=== PATIENT | male | born 1960 | race American Indian/Alaskan Native ===

== ENCOUNTER 2016-09-28 10:04 | Inpatient (IN) | payer SELFPAY ==
[2016-09-28 10:48] LABS: Basophils % (Auto) 0.3 % (0.0-1.8); Eosinophils % (Auto) 0.1 % (0.0-4.3); Hematocrit 37.8 % (35.5-45.6); Hemoglobin 12.6 gm/dl (11.8-15.2); Mean Corpuscular HGB Conc 34 % (32-34); Mean Corpuscular Hemoglobin 33 pg (28-32); Mean Corpuscular Volume 100 fl (84-94); Platelet Count 169 K/mm3 (140-440); Red Cell Distribution Width 14.5 % (13.2-15.2); White Blood Count 12.4 K/mm3 (4.5-11.0)
[2016-09-28 10:58] LABS: INR 0.97 (0.87-1.13)
[2016-09-28 10:59] LABS: Partial Thromboplastin Time 26.6 Sec. (24.2-36.6)
[2016-09-28 11:13] LABS: Anion Gap 24 mmol/L; BUN/Creatinine Ratio 11.42; Blood Urea Nitrogen 8 mg/dL (9-20); Calcium 9.5 mg/dL (8.4-10.2); Carbon Dioxide 21 mmol/L (22-30); Chloride 85.5 mmol/L (98-107); Glucose 90 mg/dL (75-100); Potassium 3.5 mmol/L (3.6-5.0); Sodium 127 mmol/L (137-145)
--- NOTE | 2016-09-28 11:15 | XRay Report ---
AP CHEST: HISTORY: Hypertension Patchy infiltrate or atelectasis has developed at the left lung base since 09/09/15. The remainder of the lungs are clear. No pleural effusion or pneumothorax. Normal heart and mediastinal structures. Chronic granulomatous findings are noted. IMPRESSION: Left lower lobe opacity concerning for infiltrate or atelectasis. Correlate for pneumonia.
[2016-09-28 11:19] LABS: Albumin 4.3 g/dL (3.9-5); Albumin/Globulin Ratio 1.5 %; Bilirubin,Direct 0.3 mg/dL (0-0.2); Bilirubin,Indirect 0.9 mg/dL; Bilirubin,Total 1.2 mg/dL (0.1-1.2); Magnesium 1.5 mg/dL (1.7-2.3); Total Protein 7.2 g/dL (6.3-8.2)
[2016-09-28 11:38] LABS: Urine Drugs of Abuse Note Disclamer
[2016-09-28 11:46] LABS: Bilirubin,Urine NEG (Negative); Blood,Urine MOD (Negative); Ketones,Urine 20 mg/dL (Negative); Leukocyte Esterase,Urine NEG (Negative); Nitrite,Urine NEG (Negative)
[2016-09-28] MEDS ORDERED: NACL 0.9% 1000 ML 1,000 ML IV ONE ×2 (12:04→12:09)
[2016-09-28] MEDS ORDERED: MAGNESIUM SULFATE 2GM/50ML 2 GM/50 ML BAG IV ONE (12:06)
[2016-09-28] MEDS ORDERED: K-DUR PO ONE (12:06)
[2016-09-28] MEDS ORDERED: LEVAQUIN 750MG/150ML 750 MG/150 ML BAG IV ONE (12:09)
[2016-09-28] MEDS ORDERED: ATIVAN PO ONE (12:54)
--- NOTE | 2016-09-28 12:54 | Admit Criteria Form ---
Admission Criteria Documentation: PNEUMONIA, COMMUNITY ACQUIRED Clinical Indications for Admission to Inpatient Care ( Place 'X' for any and all applicable criteria): Admission is indicated for ANY ONE of the following (1)(2)(3): [ ]I. Hypoxemia indicated by ANY ONE of the following: [ ]a) Oxygen saturation less than 90% while breathing room air [ ]b) PO2 less than 60 mm Hg (8.0 kPa) while breathing room air [ ]c) Chronic lung disease with significant deterioration from baseline oxygenation [X]II. Appropriate diagnostic testing and treatment unavailable in outpatient or recovery facility (eg,testing or infection control measures unavailable(10) [ ]III. Moderate-risk or high-risk category patients (Pneumonia Severity Index (PSI) class IV or V, or CURB-65 score of 3 or greater). [ ]IV. Outpatient treatment failure as indicated by ANY ONE of the following(9) : [ ]a) Failure to respond to antibiotic (eg, resistant organism) [ ]b) Clinically significant adverse effects from medication (eg, vomiting) [ ]c) Complications of pneumonia (eg, empyema, bacteremia) [ ]d) Significant worsening of comorbid cond necessitating inpatient care (eg, chronic heart failure) [ ]V. Intermediate-risk category patients (eg, PSI class III or CURB-65 score 2) who do not improve with initial therapy and observation. [ ]. Immunocompromised patients (eg, AIDS, chronic steroid use) at moderate or high risk based on clinical evaluation. [ ]VII. Complicated pleural effusions (eg, exudative, loculated) [ ]VIII.Hemodynamic instability [ ] IX. Altered mental status that is severe or persistent. [ ]X. Dehydration that is severe or persistent. []XI. Bacteremia [ ]XII. Respiratory finding (eg. tachypnea) that do not respond to outpatient or observation care treatment Extended stay beyond goal length of stay may be needed for (20) [ ]a) Unclear diagnosis [ ]b) Pleural disease [ ]c) Severe pneumonia or treatment failure (25 [ ]d) Respiratory failure (anticipate invasive or noninvasive ventilatory support) [ ]e) Abnormal serum electrolytes (serum Na concentration less than 135 mEq/L (mmol/L) (32)(33) [ ]f) Clinically significant comorbid illness (eg, heart failure, atrial fibrillation with rapid heart rate, alcohol withdrawal, renal insufficiency)(34)(35) [ ]g) Comorbid acute exacerbation of COPD(36) [ ]h) Concomitant diagnosis of malignancy that may be associated with malnutrition, immunologic impairment, or bronchial obstruction. [ ]i) Concomitant altered mental status [ ]j) Culture-identified Gram-negative or antibiotic-resistant organism (eg, Pseudomonas, methicillin-resistant Staphylococcus aureus)(30) [ ]k) Healthcare-associated pneumonia The original [employer] content created by [employer] has been revised. The portions of the content which have been revised are identified through the use of italic text or in bold, and [facility] has neither reviewed nor approved the modified material. All other unmodified content is copyright [employer]. Please see references footnoted in the original [facility] edition 2016 Admission Criteria Met: Yes
--- NOTE | 2016-09-28 15:43 | History and Physical Report ---
History of Present Illness Date of examination: 09/28/16 Date of admission: 09/28/16 Chief complaint: Chest pain since am History of present illness: The patient has had substernal chest pain which appears to radiate up towards his jaw. He says he has a history of reflux and thinks that's what it is. He has previously been on proton inhibitors but states he is not taking them now. It looks like he received a prescription last July when he eighth. He states that he does take his habits. He states he has a history of PCI I believe it was in 2002. He was seen in emergency department about a year ago he states but did not have any stress testing or years. He denies nausea vomiting diaphoresis or dyspnea. He does state he has had a persistent cough for several days. He describes the pain is nonpleuritic. Does continue to smoke. He's had no hemoptysis, recent travel leg swelling or calf pain. He denies fever or chills. The patient does admit to being a heavy drinker. He even tells the nurse that he may need some Ativan to prevent alcohol withdrawal. Past History Past Medical History: CAD, hypertension, hyperlipidemia Medications and Allergies Allergies Allergy/AdvReac Type Severity Reaction Status Date / Time lisinopril Allergy Mild Shortness Verified 09/11/15 13:12 of Breath Home Medications Medication Instructions Recorded Confirmed Last Taken Type Aspirin [Adult Low Dose Aspirin EC] 81 mg PO QDAY 09/28/16 09/28/16 Unknown History AtorvaSTATin [Lipitor] 80 mg PO QHS 09/28/16 09/28/16 Unknown History Carvedilol [Coreg] 12.5 mg PO BID 09/28/16 09/28/16 Unknown History Clopidogrel Bisulfate [Plavix] 75 mg PO QDAY 09/28/16 09/28/16 Unknown History FLUoxetine [PROzac] 20 mg PO QDAY 09/28/16 09/28/16 Unknown History Famotidine [Pepcid] 20 mg PO BID #60 tablet 09/29/16 Unknown Rx Levofloxacin [Levaquin TAB] 500 mg PO QDAY #5 tablet 09/29/16 Unknown Rx Active Meds: Active Medications Sodium Chloride (Nacl 0.9% 1000 Ml) 1,000 mls @ 125 mls/hr IV ONCE ONE Stop: 09/28/16 20:08 Last Admin: 09/28/16 13:56 Dose: 125 mls/hr Exam - Constitutional Vitals: Temp Pulse Resp BP Pulse Ox 98.6 F 91 H 20 151/99 97 09/28/16 10:22 09/28/16 13:31 09/28/16 13:43 09/28/16 13:31 09/28/16 13:31 Results - Labs CBC & Chem 7: 09/29/16 04:53 09/29/16 04:53 Labs: Abnormal lab results 09/28/16 09/28/16 09/28/16 Range/Units 10:30 10:30 10:34 WBC 12.4 H (4.5-11.0) K/mm3 MCV 100 H (84-94) fl MCH 33 H (28-32) pg Lymph % (Auto) 3.9 L (13.4-35.0) % Lymph # 0.5 L (1.2-5.4) K/mm3 Seg Neutrophils % 89.4 H (40.0-70.0) % Seg Neutrophils # 11.1 H (1.8-7.7) K/mm3 Sodium 127 L (137-145) mmol/L Potassium 3.5 L (3.6-5.0) mmol/L Chloride 85.5 L (98-107) mmol/L Carbon Dioxide 21 L (22-30) mmol/L BUN 8 L (9-20) mg/dL Creatinine 0.7 L (0.8-1.5) mg/dL Magnesium 1.5 L (1.7-2.3) mg/dL Direct Bilirubin 0.3 H (0-0.2) mg/dL AST 46 H (5-40) units/L Assessment and Plan - Patient Problems (1) Chest pain in adult Current Visit: Yes Status: Acute (2) HTN (hypertension) Current Visit: Yes Status: Chronic Qualifiers: Hypertension type: essential hypertension Qualified Code(s): I10 - Essential (primary) hypertension Plan to address problem: Cont Coreg (3) HLD (hyperlipidemia) Current Visit: Yes Status: Chronic Qualifiers: Hyperlipidemia type: mixed hyperlipidemia Qualified Code(s): E78.2 - Mixed hyperlipidemia Plan to address problem: on statins (4) CAD (coronary artery disease) Current Visit: Yes Status: Acute Qualifiers: Coronary Disease-Associated Artery/Lesion type: C [place] vs. transplanted heart: N Associated angina: A (5) CAD (coronary artery disease) Current Visit: Yes Status: Chronic Qualifiers: Coronary Disease-Associated Artery/Lesion type: [place] artery [place] vs. transplanted heart: N Associated angina: with stable angina Plan to address problem: On Plavix 75 mg po qday (6) Hyponatremia Current Visit: Yes Status: Acute Plan to address problem: 3 percent sodium Chloride to be given (7) DVT prophylaxis Current Visit: Yes Status: Acute
[2016-09-28] MEDS ORDERED: PERCOCET 5/325 PO PRN (15:46)
[2016-09-28] MEDS ORDERED: SODIUM CHLORIDE FLUSH SYRINGE 10 ML IV PRN (15:46)
[2016-09-28] MEDS ORDERED: TYLENOL PO PRN (15:46)
[2016-09-28] MEDS ORDERED: MILK OF MAGNESIA PO PRN (15:46)
[2016-09-28] MEDS ORDERED: DULCOLAX PR PRN (15:46)
[2016-09-28] MEDS ORDERED: ZOFRAN IV PRN (15:46)
[2016-09-28] MEDS ORDERED: DILAUDID IV PRN (15:46)
[2016-09-28] MEDS ORDERED: D5NS 1,000 ML IV SCH (16:00)
[2016-09-28 16:39] LABS: Creatine Kinase 94 units/L (55-170)
[2016-09-28 16:51] LABS: Creatine Kinase MB < 1.0 ng/mL (0.0-4.0)
--- NOTE | 2016-09-28 17:00 | Emergency Department Report ---
ED General Adult HPI - General Chief complaint: Chest Pain Stated complaint: CHEST PAIN Time Seen by Provider: 09/28/16 10:30 Source: patient, EMS Mode of arrival: Stretcher Limitations: No Limitations - History of Present Illness Initial comments: The patient has had substernal chest pain which appears to radiate up towards his throat. He says he has a history of reflux and thinks that's what it is. He has previously been on proton inhibitors but states he is not taking them now. It looks like he received a prescription last July when he eighth. He states that he does take his habits. He states he has a history of PCI I believe it was in 2002. He was seen in emergency department about a year ago he states but did not have any stress testing or years. He denies nausea vomiting diaphoresis or dyspnea. He does state he has had a persistent cough for several days. He describes the pain is nonpleuritic. Does continue to smoke. He's had no hemoptysis, recent travel leg swelling or calf pain. He denies fever or chills. The patient does admit to being a heavy drinker. He even tells the nurse that he may need some Ativan to prevent alcohol withdrawal. -: Gradual, days(s) Location: chest Radiation: other (throat and states he feels like reflux throat ) Severity scale (0 -10): 0 Quality: burning Consistency: now resolved Improves with: none Worsens with: none Associated Symptoms: cough Treatments Prior to Arrival: none - Related Data Home Medications Medication Instructions Recorded Confirmed Last Taken Aspirin [Adult Low Dose Aspirin EC] 81 mg PO QDAY 09/28/16 09/28/16 Unknown AtorvaSTATin [Lipitor] 80 mg PO QHS 09/28/16 09/28/16 Unknown Carvedilol [Coreg] 12.5 mg PO BID 09/28/16 09/28/16 Unknown Clopidogrel Bisulfate [Plavix] 75 mg PO QDAY 09/28/16 09/28/16 Unknown FLUoxetine [PROzac] 20 mg PO QDAY 09/28/16 09/28/16 Unknown Allergies Allergy/AdvReac Type Severity Reaction Status Date / Time lisinopril Allergy Mild Shortness Verified 09/11/15 13:12 of Breath ED Review of Systems ROS: Stated complaint: CHEST PAIN Other details as noted in HPI Constitutional: denies: chills, fever Eyes: denies: eye pain, eye discharge, vision change ENT: denies: ear pain, throat pain Respiratory: cough. denies: shortness of breath, wheezing Cardiovascular: chest pain. denies: palpitations Endocrine: no symptoms reported Gastrointestinal: denies: abdominal pain, nausea, diarrhea Genitourinary: denies: urgency, dysuria Musculoskeletal: denies: back pain, joint swelling, arthralgia Skin: denies: rash, lesions Neurological: denies: headache, weakness, paresthesias Psychiatric: denies: anxiety, depression Hematological/Lymphatic: denies: easy bleeding, easy bruising ED Past Medical Hx - Past Medical History Hx Hypertension: Yes Hx Heart Attack/AMI: Yes Hx Congestive Heart Failure: No Hx Diabetes: No Hx GERD: Yes Hx Asthma: No Hx COPD: Yes Additional medical history: acid reflux - Surgical History Hx Coronary Stent: Yes (2 stents 2012) - Social History Smoking Status: Current Every Day Smoker Substance Use Type: Alcohol - Medications Home Medications: Home Medications Medication Instructions Recorded Confirmed Last Taken Type Aspirin [Adult Low Dose Aspirin EC] 81 mg PO QDAY 09/28/16 09/28/16 Unknown History AtorvaSTATin [Lipitor] 80 mg PO QHS 09/28/16 09/28/16 Unknown History Carvedilol [Coreg] 12.5 mg PO BID 09/28/16 09/28/16 Unknown History Clopidogrel Bisulfate [Plavix] 75 mg PO QDAY 09/28/16 09/28/16 Unknown History FLUoxetine [PROzac] 20 mg PO QDAY 09/28/16 09/28/16 Unknown History ED Physical Exam - General Limitations: No Limitations General appearance: alert, in no apparent distress - Head Head exam: Present: atraumatic, normocephalic - Eye Eye exam: Present: normal appearance, PERRL, EOMI. Absent: scleral icterus - ENT ENT exam: Present: mucous membranes moist - Neck Neck exam: Present: normal inspection - Respiratory Respiratory exam: Present: normal lung sounds bilaterally. Absent: respiratory distress - Cardiovascular Cardiovascular Exam: Present: regular rate, normal rhythm. Absent: systolic murmur, diastolic murmur, rubs, gallop - GI/Abdominal GI/Abdominal exam: Present: soft, normal bowel sounds. Absent: distended, tenderness, guarding, rebound, rigid - Rectal Rectal exam: Present: deferred - Extremities Exam Extremities exam: Present: normal inspection - Back Exam Back exam: Present: normal inspection - Neurological Exam Neurological exam: Present: alert, oriented X3, CN II-XII intact. Absent: motor sensory deficit - Psychiatric Psychiatric exam: Present: normal affect, normal mood - Skin Skin exam: Present: warm, dry, intact, normal color. Absent: rash ED Course Vital Signs 09/28/16 09/28/16 09/28/16 10:13 10:21 10:22 Temperature 98.6 F Pulse Rate 160 H 91 H 93 H Respiratory 22 20 Rate Blood Pressure 143/99 143/99 O2 Sat by Pulse 98 100 Oximetry 09/28/16 09/28/16 09/28/16 10:31 10:41 10:51 Temperature Pulse Rate 108 H 89 99 H Respiratory 23 20 21 Rate Blood Pressure 143/99 143/99 143/99 O2 Sat by Pulse 96 96 97 Oximetry 09/28/16 09/28/16 09/28/16 11:01 11:11 11:21 Temperature Pulse Rate 94 H 90 Respiratory 17 20 Rate Blood Pressure 160/97 160/97 160/97 O2 Sat by Pulse 97 98 97 Oximetry 09/28/16 09/28/16 09/28/16 12:35 12:41 12:51 Temperature Pulse Rate 90 85 95 H Respiratory 28 H 15 18 Rate Blood Pressure 151/99 151/99 151/99 O2 Sat by Pulse 99 98 98 Oximetry 09/28/16 09/28/16 09/28/16 13:00 13:11 13:21 Temperature Pulse Rate 91 H 88 88 Respiratory 24 16 14 Rate Blood Pressure 151/99 160/97 151/99 O2 Sat by Pulse 99 98 99 Oximetry 09/28/16 09/28/16 09/28/16 13:31 13:41 13:43 Temperature Pulse Rate 91 H 90 Respiratory 18 21 20 Rate Blood Pressure 151/99 151/99 O2 Sat by Pulse 97 98 Oximetry 09/28/16 09/28/16 09/28/16 13:51 14:00 14:11 Temperature Pulse Rate 87 86 86 Respiratory 20 17 21 Rate Blood Pressure 151/99 142/94 142/94 O2 Sat by Pulse 99 99 98 Oximetry 09/28/16 09/28/16 09/28/16 14:21 14:30 14:41 Temperature Pulse Rate 87 92 H 90 Respiratory 25 H 18 19 Rate Blood Pressure 142/94 151/99 142/94 O2 Sat by Pulse 98 99 99 Oximetry 09/28/16 09/28/16 09/28/16 14:51 15:00 15:35 Temperature Pulse Rate 95 H 110 H 101 H Respiratory 18 14 Rate Blood Pressure 142/94 142/94 144/91 O2 Sat by Pulse 98 98 98 Oximetry 09/28/16 09/28/16 09/28/16 15:41 15:51 16:01 Temperature Pulse Rate 88 86 89 Respiratory 21 17 24 Rate Blood Pressure 144/91 144/91 144/92 O2 Sat by Pulse 97 100 99 Oximetry 09/28/16 09/28/16 16:11 16:21 Temperature Pulse Rate 85 86 Respiratory 14 15 Rate Blood Pressure 144/92 144/92 O2 Sat by Pulse 98 97 Oximetry - Reevaluation(s) Reevaluation #1: Patient was given 1 dose of Ativan. He remained stable in the emergency department. His case was discussed with Dr. Barry who has admitted him to the hospitalist service. He was additionally given repletion of his electrolyte deficiencies. He was admitted in stable condition. 09/28/16 17:51 ED Medical Decision Making - Lab Data Result diagrams: 09/28/16 10:30 09/28/16 10:30 Laboratory Results - last 24 hr 09/28/16 09/28/16 09/28/16 10:30 10:30 10:34 WBC 12.4 H RBC 3.80 Hgb 12.6 Hct 37.8 MCV 100 H MCH 33 H MCHC 34 RDW 14.5 Plt Count 169 Lymph % (Auto) 3.9 L [place] % (Auto) 6.3 Eos % (Auto) 0.1 Baso % (Auto) 0.3 Lymph # 0.5 L [place] # 0.8 Eos # 0.0 Baso # 0.0 Seg Neutrophils % 89.4 H Seg Neutrophils # 11.1 H PT 12.8 INR 0.97 APTT 26.6 Sodium 127 L Potassium 3.5 L Chloride 85.5 L Carbon Dioxide 21 L Anion Gap 24 BUN 8 L Creatinine 0.7 L Estimated GFR > 60 BUN/Creatinine Ratio 11.42 Glucose 90 Calcium 9.5 Magnesium Total Bilirubin Direct Bilirubin Indirect Bilirubin AST ALT Alkaline Phosphatase Troponin T < 0.010 Total Protein Albumin Albumin/Globulin Ratio Lipase Urine Color Urine Turbidity Urine pH Ur Specific [place] Urine Protein Urine Glucose (UA) Urine Ketones Urine Blood Urine Nitrite Urine Bilirubin Urine Urobilinogen Ur Leukocyte Esterase Urine WBC (Auto) Urine RBC (Auto) U Epithel Cells (Auto) Urine Opiates Screen Urine Methadone Screen Ur Barbiturates Screen Ur Phencyclidine Scrn Ur Amphetamines Screen U Benzodiazepines Scrn Urine Cocaine Screen U Marijuana (THC) Screen Drugs of Abuse Note Plasma/Serum Alcohol 09/28/16 09/28/16 09/28/16 10:34 10:34 11:34 WBC RBC Hgb Hct MCV MCH MCHC RDW Plt Count Lymph % (Auto) [place] % (Auto) Eos % (Auto) Baso % (Auto) Lymph # [place] # Eos # Baso # Seg Neutrophils % Seg Neutrophils # PT INR APTT Sodium Potassium Chloride Carbon Dioxide Anion Gap BUN Creatinine Estimated GFR BUN/Creatinine Ratio Glucose Calcium Magnesium 1.5 L Total Bilirubin 1.2 Direct Bilirubin 0.3 H Indirect Bilirubin 0.9 AST 46 H ALT 29 Alkaline Phosphatase 109 Troponin T Total Protein 7.2 Albumin 4.3 Albumin/Globulin Ratio 1.5 Lipase 17 Urine Color Urine Turbidity Urine pH Ur Specific [place] Urine Protein Urine Glucose (UA) Urine Ketones Urine Blood Urine Nitrite Urine Bilirubin Urine Urobilinogen Ur Leukocyte Esterase Urine WBC (Auto) Urine RBC (Auto) U Epithel Cells (Auto) Urine Opiates Screen Presumptive negative Urine Methadone Screen Presumptive negative Ur Barbiturates Screen Presumptive negative Ur Phencyclidine Scrn Presumptive negative Ur Amphetamines Screen Presumptive negative U Benzodiazepines Scrn Presumptive negative Urine Cocaine Screen Presumptive negative U Marijuana (THC) Screen Presumptive negative Drugs of Abuse Note Disclamer Plasma/Serum Alcohol 0.02 09/28/16 11:34 WBC RBC Hgb Hct MCV MCH MCHC RDW Plt Count Lymph % (Auto) [place] % (Auto) Eos % (Auto) Baso % (Auto) Lymph # [place] # Eos # Baso # Seg Neutrophils % Seg Neutrophils # PT INR APTT Sodium Potassium Chloride Carbon Dioxide Anion Gap BUN Creatinine Estimated GFR BUN/Creatinine Ratio Glucose Calcium Magnesium Total Bilirubin Direct Bilirubin Indirect Bilirubin AST ALT Alkaline Phosphatase Troponin T Total Protein Albumin Albumin/Globulin Ratio Lipase Urine Color Yellow Urine Turbidity Clear Urine pH 7.0 Ur Specific [place] 1.010 Urine Protein 30 mg/dl Urine Glucose (UA) Neg Urine Ketones 20 Urine Blood Mod Urine Nitrite Neg Urine Bilirubin Neg Urine Urobilinogen 2.0 Ur Leukocyte Esterase Neg Urine WBC (Auto) 1.0 Urine RBC (Auto) 8.0 U Epithel Cells (Auto) < 1.0 Urine Opiates Screen Urine Methadone Screen Ur Barbiturates Screen Ur Phencyclidine Scrn Ur Amphetamines Screen U Benzodiazepines Scrn Urine Cocaine Screen U Marijuana (THC) Screen Drugs of Abuse Note Plasma/Serum Alcohol - EKG Data -: EKG Interpreted by Me EKG shows normal: sinus rhythm Rate: normal - EKG Data Interpretation: other (inferior Q's consistent with old inferior wall zone. Nonspecific ST-T wave changes no ischemic changes left axis deviation. RSR pattern in V1 and V2) - Radiology Data Radiology results: report reviewed interpreted by me: Is a left lower lobe infiltrate that was not present on previous x-ray. Critical care attestation.: If time is entered above; I have spent that time in minutes in the direct care of this critically ill patient, excluding procedure time. ED Disposition Clinical Impression: Hyponatremia, Hypomagnesemia, Chronic liver disease Pneumonia Qualifiers: Pneumonia type: due to unspecified organism Laterality: left Lung location: lower lobe of lung Qualified Code(s): J18.9 - Pneumonia, unspecified organism Alcohol dependency Qualifiers: Substance use status: uncomplicated Qualified Code(s): F10.20 - Alcohol dependence, uncomplicated Disposition: OP ADMITTED IP TO THIS HOSP Is pt being admited?: Yes Does the pt Need Aspirin: Yes Condition: Stable Instructions: Bacterial Pneumonia (ED) Time of Disposition: 17:55
[2016-09-28] MEDS ORDERED: PLAVIX ONE (18:01)
[2016-09-28] MEDS ORDERED: PROzac ONE (18:01)
[2016-09-28] MEDS: PLAVIX PO SCH (18:06)
[2016-09-28] MEDS: PROzac PO SCH (18:07)
[2016-09-28] MEDS: HALFPRIN EC PO SCH ×2 (18:07→18:42)
[2016-09-28] MEDS ORDERED: ATIVAN ONE (18:45)
[2016-09-28 19:59] LABS: Creatine Kinase 88 units/L (55-170)
[2016-09-28 20:06] LABS: Creatine Kinase MB < 1.0 ng/mL (0.0-4.0)
[2016-09-28] MEDS: COREG PO SCH (21:32)
[2016-09-28 22:28] LABS: Creatine Kinase 80 units/L (55-170)
[2016-09-28 22:31] LABS: Creatine Kinase MB < 1.0 ng/mL (0.0-4.0)
[2016-09-29 06:48] LABS: Alanine Aminotransferase 21 units/L (7-56); Albumin 3.8 g/dL (3.9-5); Albumin/Globulin Ratio 1.4 %; Alkaline Phosphatase 88 units/L (35-129); Anion Gap 19 mmol/L; BUN/Creatinine Ratio 14.44; Basophils % (Auto) 0.5 % (0.0-1.8); Bilirubin,Total 0.8 mg/dL (0.1-1.2); Blood Urea Nitrogen 13 mg/dL (9-20); Calcium 9.1 mg/dL (8.4-10.2); Carbon Dioxide 22 mmol/L (22-30); Chloride 95.8 mmol/L (98-107); Eosinophils % (Auto) 0.8 % (0.0-4.3); Glucose 112 mg/dL (75-100); Hematocrit 37.1 % (35.5-45.6); Hemoglobin 12.4 gm/dl (11.8-15.2); Mean Corpuscular HGB Conc 33 % (32-34); Mean Corpuscular Hemoglobin 34 pg (28-32); Mean Corpuscular Volume 101 fl (84-94); Platelet Count 161 K/mm3 (140-440); Potassium 3.6 mmol/L (3.6-5.0); Red Blood Count 3.68 M/mm3 (3.65-5.03); Sodium 133 mmol/L (137-145); Total Protein 6.5 g/dL (6.3-8.2); White Blood Count 9.5 K/mm3 (4.5-11.0)
[2016-09-29 08:20] VITALS: BP 135/85
[2016-09-29] MEDS ORDERED: LEXISCAN IV ONE (09:43)
[2016-09-29] MEDS ORDERED: LOVENOX SUB-Q SCH (10:00)
[2016-09-29] MEDS: HALFPRIN EC PO SCH (11:53)
[2016-09-29] MEDS: COREG PO SCH (11:53)
[2016-09-29] MEDS: PROzac PO SCH (11:53)
[2016-09-29] MEDS: PLAVIX PO SCH (11:53)
--- NOTE | 2016-09-29 13:52 | Discharge Summary ---
Providers - Providers Date of Admission: 09/28/16 15:46 Date of discharge: 09/29/16 Attending physician: CONCEPCION TIAN Primary care physician: JAY TORREZ MD Hospitalization Condition: Fair Hospital course: Patient is 56 yo with history of coronary artery disease, GERD. He presented with chest pain. His initial Troponin done in ED, was normal. He was given Aspirin and admitted to Telemetry to rule out acute coronary syndrome. Stress test was done following day and was normal. Chest X ray showed left lower lobe pneumonia. Chest pain due to pneumonia. He was subsequently discharged home on Famotidine and Levaquin. Disposition: DISCHARGED TO HOME OR SELFCARE - Discharge Diagnoses (1) CAD (coronary artery disease) Status: Chronic Qualifiers: Coronary Disease-Associated Artery/Lesion type: C [place] vs. transplanted heart: N Associated angina: A (2) Chest pain in adult Status: Acute Comment: due to pneumonia (3) Hyponatremia Status: Acute (4) HLD (hyperlipidemia) Status: Chronic Qualifiers: Hyperlipidemia type: mixed hyperlipidemia Qualified Code(s): E78.2 - Mixed hyperlipidemia (5) HTN (hypertension) Status: Chronic Qualifiers: Hypertension type: essential hypertension Qualified Code(s): I10 - Essential (primary) hypertension (6) Pneumonia Status: Acute Qualifiers: Pneumonia type: P Aspiration pneumonia type: A Laterality: left Lung location: lower lobe of lung Core Measure Documentation - Palliative Care Palliative Care/ Comfort Measures: Not Applicable - Core Measures Any of the following diagnoses?: none Exam - Constitutional Vitals: Temp Pulse Resp BP Pulse Ox 98.3 F 77 18 135/85 99 09/29/16 04:25 09/29/16 12:19 09/29/16 08:19 09/29/16 11:53 09/29/16 08:19 Plan Activity: advance as tolerated Diet: low fat, low cholesterol, low salt Additional Instructions: 1.Follow up with PCP or [facility] in 1 week. 2.Follow up with Partner Marketing Manager in 1 week Follow up with: PRIMARY MD SHAN [Primary Care Provider] - 3-5 Days Prescriptions: Famotidine [Pepcid] 20 mg PO BID #60 tablet
[2016-09-29] MEDS ORDERED: LEVAQUIN PO SCH (14:00)
--- NOTE | 2016-09-29 14:20 | Treadmill Report ---
THALLIUM STRESS TEST LEFT VENTRICLE: Left ventricular chamber size is within normal. Perfusion study demonstrates fairly homogeneous uptake of the tracer in all segments, no significant defects identified. Mild diaphragmatic attenuation artifact is noted. Gated analysis demonstrates normal left ventricular systolic function, ejection fraction 65%. CONCLUSION: Normal myocardial perfusion study. JOB# [id number] CA/NTS
== END 2016-09-29 15:20 | disposition home or self-care (01) | DRG 302 ==
LOC: ED 10:04 → 4A 15:46
PROVIDERS: ADMIT Internal Medicine; ATTEND Internal Medicine
DX: I25.10 Atherosclerotic heart disease of native coronary artery without angina pectoris (principal); J18.9 Pneumonia, unspecified organism; E87.1 Hypo-osmolality and hyponatremia; I10 Essential (primary) hypertension; K21.9 Gastro-esophageal reflux disease without esophagitis; J44.9 Chronic obstructive pulmonary disease, unspecified; E78.2 Mixed hyperlipidemia; F17.210 Nicotine dependence, cigarettes, uncomplicated; Z98.61 Coronary angioplasty status; Z88.8 Allergy status to other drugs, medicaments and biological substances
CPT/HCPCS: 36415; 71010; 78452; 80048; 80053; 80074; 80307; 80320; 81001; 82140; 82550; 82553; 83036; 83690; 83735; 84484; 85025; 85610; 85730; 87040; 93005; 93010; 93017; 96361; 96365; 96375; A9270-GY; A9502; G0480; J1650; J1956; J2785; J3475; J7030; J7042

== ENCOUNTER 2016-10-12 22:42 | Emergency (ER) | payer SELFPAY ==
--- NOTE | 2016-10-12 23:26 | Emergency Department Report ---
ED General Adult HPI - General Chief complaint: Dyspnea/Respdistress Stated complaint: HYPOTENSION Time Seen by Provider: 10/12/16 23:01 Source: patient, EMS Mode of arrival: Stretcher Limitations: No Limitations - History of Present Illness Initial comments: 56-year-old male presents to the emergency department via EMS for evaluation of low blood pressure. Per report, the patient initially called EMS due to shortness of breath. Patient recently was diagnosed with pneumonia and states he completed his antibiotic 3 days ago. Patient has been drinking alcohol tonight and was attempting to walk up until to get more alcohol when he began having difficulty breathing. There was no associated chest pain. EMS notes that the patient was hypotensive during there are evaluation with a blood pressure of 77/50. Patient was given 1 L of normal saline with improvement in his blood pressure. Patient states he normally drinks 8 shots of liquor a day along with a sixpack of beer. He states he is trying to cut back on this and would like help getting into rehabilitation. There are no other complaints. -: Sudden, This evening Consistency: now resolved Improves with: rest Worsens with: none - Related Data Home Medications Medication Instructions Recorded Confirmed Last Taken Aspirin [Adult Low Dose Aspirin EC] 81 mg PO QDAY 09/28/16 09/28/16 Unknown AtorvaSTATin [Lipitor] 80 mg PO QHS 09/28/16 09/28/16 Unknown Carvedilol [Coreg] 12.5 mg PO BID 09/28/16 09/28/16 Unknown Clopidogrel Bisulfate [Plavix] 75 mg PO QDAY 09/28/16 09/28/16 Unknown FLUoxetine [PROzac] 20 mg PO QDAY 09/28/16 09/28/16 Unknown Previous Rx's Medication Instructions Recorded Last Taken Type Famotidine [Pepcid] 20 mg PO BID #60 tablet 09/29/16 Unknown Rx Levofloxacin [Levaquin TAB] 500 mg PO QDAY #5 tablet 09/29/16 Unknown Rx Allergies Allergy/AdvReac Type Severity Reaction Status Date / Time lisinopril Allergy Mild Shortness Verified 09/11/15 13:12 of Breath bee venom (honey bee) Allergy Hives Verified 10/12/16 23:17 ED Review of Systems ROS: Stated complaint: HYPOTENSION Other details as noted in HPI Comment: All other systems reviewed and negative Respiratory: SOB with exertion Psychiatric: as per HPI (alcohol abuse) ED Past Medical Hx - Past Medical History Previous Medical History?: Yes Hx Hypertension: Yes Hx Heart Attack/AMI: Yes Hx Congestive Heart Failure: Yes Hx Diabetes: No Hx GERD: Yes Hx Psychiatric Treatment: Yes (depression/anxiety/ADHD) Hx Asthma: No Hx COPD: Yes Additional medical history: acid reflux - Surgical History Past Surgical History?: Yes Hx Coronary Stent: Yes - Family History Family history: no significant - Social History Smoking Status: Current Every Day Smoker Substance Use Type: Alcohol - Medications Home Medications: Home Medications Medication Instructions Recorded Confirmed Last Taken Type Aspirin [Adult Low Dose Aspirin EC] 81 mg PO QDAY 09/28/16 09/28/16 Unknown History AtorvaSTATin [Lipitor] 80 mg PO QHS 09/28/16 09/28/16 Unknown History Carvedilol [Coreg] 12.5 mg PO BID 09/28/16 09/28/16 Unknown History Clopidogrel Bisulfate [Plavix] 75 mg PO QDAY 09/28/16 09/28/16 Unknown History FLUoxetine [PROzac] 20 mg PO QDAY 09/28/16 09/28/16 Unknown History Famotidine [Pepcid] 20 mg PO BID #60 tablet 09/29/16 Unknown Rx Levofloxacin [Levaquin TAB] 500 mg PO QDAY #5 tablet 09/29/16 Unknown Rx ED Physical Exam - General Limitations: No Limitations General appearance: alert, in no apparent distress - Head Head exam: Present: atraumatic, normocephalic - Eye Eye exam: Present: normal appearance, PERRL, EOMI - ENT ENT exam: Present: normal exam, normal orophraynx, mucous membranes moist - Neck Neck exam: Present: normal inspection, full ROM. Absent: tenderness - Respiratory Respiratory exam: Present: normal lung sounds bilaterally. Absent: respiratory distress - Cardiovascular Cardiovascular Exam: Present: regular rate, normal rhythm, normal heart sounds - GI/Abdominal GI/Abdominal exam: Present: soft, normal bowel sounds. Absent: distended, tenderness - Extremities Exam Extremities exam: Present: normal inspection, full ROM. Absent: tenderness - Back Exam Back exam: Present: normal inspection, full ROM. Absent: tenderness - Neurological Exam Neurological exam: Present: alert, oriented X3. Absent: motor sensory deficit - Psychiatric Psychiatric exam: Present: normal affect, normal mood. Absent: homicidal ideation, suicidal ideation - Skin Skin exam: Present: warm, dry, intact ED Course Vital Signs 10/12/16 10/12/16 23:02 23:16 Temperature 98.5 F 98.8 F Pulse Rate 80 81 Respiratory 18 16 Rate Blood Pressure 103/69 Blood Pressure 108/65 [Left] O2 Sat by Pulse 98 100 Oximetry ED Medical Decision Making - Lab Data Result diagrams: 10/12/16 23:24 10/12/16 23:24 - EKG Data -: EKG Interpreted by Me EKG shows normal: sinus rhythm, axis, intervals, QRS complexes, ST-T waves Rate: normal - EKG Data When compared to previous EKG there are: no significant change Interpretation: unchanged when compared t (09/28/2016), other (old inferior infarct, left atrial enlargement) - Radiology Data Radiology results: image reviewed interpreted by me: Chest x-ray shows resolution of the previous LLL pneumonia. There is no acute cardiopulmonary abnormality. - Medical Decision Making Lab results reviewed. Patient's blood pressure has remained within normal limits in the emergency department. Patient has been medically cleared and evaluated by mental health. He is being referred for inpatient detox. Patient is voluntary. - Differential Diagnosis pneumonia, alcohol intoxication, dehydration Critical care attestation.: If time is entered above; I have spent that time in minutes in the direct care of this critically ill patient, excluding procedure time. ED Disposition Clinical Impression: Hypomagnesemia Alcohol dependency Qualifiers: Substance use status: with intoxication Complication of substance-induced condition: uncomplicated Qualified Code(s): F10.220 - Alcohol dependence with intoxication, uncomplicated Disposition: DC/TX PSY HOSP/PSY UNIT Is pt being admited?: No Condition: Stable Referrals: PRIMARY CARE, [Primary Care Provider] - 3-5 Days Time of Disposition: 00:48
[2016-10-12 23:32] LABS: Basophils % (Auto) 0.5 % (0.0-1.8); Eosinophils % (Auto) 0.1 % (0.0-4.3); Hematocrit 35.3 % (35.5-45.6); Hemoglobin 11.5 gm/dl (11.8-15.2); Mean Corpuscular HGB Conc 33 % (32-34); Mean Corpuscular Hemoglobin 33 pg (28-32); Mean Corpuscular Volume 102 fl (84-94); Platelet Count 245 K/mm3 (140-440); Red Blood Count 3.47 M/mm3 (3.65-5.03); Red Cell Distribution Width 15.5 % (13.2-15.2); White Blood Count 12.5 K/mm3 (4.5-11.0)
[2016-10-12 23:58] LABS: Albumin 3.6 g/dL (3.9-5); Albumin/Globulin Ratio 1.2 %; Bilirubin,Total 0.6 mg/dL (0.1-1.2); Calcium 8.4 mg/dL (8.4-10.2); Chloride 90.6 mmol/L (98-107); Total Protein 6.7 g/dL (6.3-8.2)
[2016-10-13 03:47] LABS: Urine Drugs of Abuse Note Disclamer
[2016-10-13 04:06] LABS: Bilirubin,Urine NEG (Negative); Blood,Urine LG (Negative); Ketones,Urine TR mg/dL (Negative); Leukocyte Esterase,Urine NEG (Negative); Mucus,Urine FEW /HPF; Nitrite,Urine NEG (Negative); Urobilinogen,Urine < 2.0 mg/dL (<2.0)
--- NOTE | 2016-10-13 08:31 | XRay Report ---
AP chest x-ray. Findings: Since the previous study on September 28, there has been resolution of the left lower lobe infiltrate. The heart and lungs reveal no acute findings on today's study.
--- NOTE | 2016-10-13 22:31 | Consultation ---
History of Present Illness - Reason for Consult Consult date: 10/13/17 Reason for consult: psych management - Chief Complaint Chief complaint: CC: "short of breath" Patient is a 56 year old with prior psych history of depression and etoh use. He notes that he came to the hospital with SOB, but when more details was obtained, it was learned that the patient has been drinking excessively. He had been drinking daily for the last 5 years in order to deal with a lot of stuff. The initial trigger was likely his divorce. He drinking 1 pint of whiskey and a 6 pack of beer daily- last drink was last night. He's incurred blackouts from the drinking and withdrawal symptoms- current ones include nausea , tremors, and cravings. He's had 6 DUI's from the alcohol. He hasn't been using illicit drugs concurrently within the last year. He has admitted to ongoing depression and anxiety since the divorce but not to the point where he has SI. No AH/VH. No period of euphoria or psychosis. Stressors include being homeless with poor finances and on probation. Medications and Allergies Allergies Allergy/AdvReac Type Severity Reaction Status Date / Time lisinopril Allergy Mild Shortness Verified 09/11/15 13:12 of Breath bee venom (honey bee) Allergy Hives Verified 10/12/16 23:17 Home Medications Medication Instructions Recorded Confirmed Last Taken Type Aspirin [Adult Low Dose Aspirin EC] 81 mg PO QDAY 09/28/16 10/13/16 Unknown History AtorvaSTATin [Lipitor] 80 mg PO QHS 09/28/16 10/13/16 Unknown History Carvedilol [Coreg] 12.5 mg PO BID 09/28/16 10/13/16 Unknown History Clopidogrel Bisulfate [Plavix] 75 mg PO QDAY 09/28/16 10/13/16 Unknown History FLUoxetine [PROzac] 20 mg PO QDAY 09/28/16 10/13/16 Unknown History Famotidine [Pepcid] 20 mg PO BID #60 tablet 09/29/16 10/13/16 Unknown Rx ISOSORBIDE MONOnitrate [Imdur ER] 30 mg PO DAILY 10/13/16 10/13/16 Unknown History Vitamin B-1 100 mg PO DAILY 10/13/16 10/13/16 Unknown History Past psychiatric history - Past Medical History Past Medical History: CAD, COPD, heart failure, hypertension Past Surgical History: Other (heart stents) - past Psychiatric treatment and history Psych: Depression psychiatric treatment history: inpt: none outp psych: none no suicide attempts depression since the prior treatment unknown substance has been to rehab long time ago per the patient for 90 days- please see above for details regarding etoh and illicit drug use - Social History Social history: other (homeless, no abuse history, not dating, +children, no work, education:GED, family hisotry of etoh use) Mental Status Exam - Vital signs Last Vital Signs Temp 100.0 F H 10/13/16 20:01 Pulse 79 10/13/16 20:01 Resp 18 10/13/16 20:01 BP 129/88 10/13/16 20:01 Pulse Ox 98 10/13/16 20:01 - Exam Orientation: time, place, person Affect: normal, depressed Mood: sad Thought Process: Intact Perceptions: none Speech: normal rate and pattern Concentration: focused Motor activity: lethargic Level of consciousness: alert Memory: Intact Interaction: cooperative Mini mental status exam(if necessary): 24-30 Results Result Diagrams: 10/12/16 23:24 10/12/16 23:24 Abnormal lab results 10/12/16 10/12/16 10/12/16 Range/Units 23:24 23:24 23:24 WBC 12.5 H (4.5-11.0) K/mm3 RBC 3.47 L (3.65-5.03) M/mm3 Hgb 11.5 L (11.8-15.2) gm/dl Hct 35.3 L (35.5-45.6) % MCV 102 H (84-94) fl MCH 33 H (28-32) pg RDW 15.5 H (13.2-15.2) % Lymph % (Auto) 6.9 L (13.4-35.0) % Lymph # 0.9 L (1.2-5.4) K/mm3 Seg Neutrophils % 86.4 H (40.0-70.0) % Seg Neutrophils # 10.8 H (1.8-7.7) K/mm3 Sodium 133 L (137-145) mmol/L Potassium 3.0 L (3.6-5.0) mmol/L Chloride 90.6 L (98-107) mmol/L Carbon Dioxide 21 L (22-30) mmol/L ALT 5 L (7-56) units/L Albumin 3.6 L (3.9-5) g/dL Urine WBC (Auto) (0.0-6.0) /HPF Plasma/Serum Alcohol 0.22 H (0-0.07) gm% // Range/Units 02:55 WBC (4.5-11.0) K/mm3 RBC (3.65-5.03) M/mm3 Hgb (11.8-15.2) gm/dl Hct (35.5-45.6) % MCV (84-94) fl MCH (28-32) pg RDW (13.2-15.2) % Lymph % (Auto) (13.4-35.0) % Lymph # (1.2-5.4) K/mm3 Seg Neutrophils % (40.0-70.0) % Seg Neutrophils # (1.8-7.7) K/mm3 Sodium (137-145) mmol/L Potassium (3.6-5.0) mmol/L Chloride (98-107) mmol/L Carbon Dioxide (22-30) mmol/L ALT (7-56) units/L Albumin (3.9-5) g/dL Urine WBC (Auto) 55.0 H (0.0-6.0) /HPF Plasma/Serum Alcohol (0-0.07) gm% All other labs normal. Assessment and Plan Assessment and plan: Patient is a 56 year old with prior psych history of depression and etoh use. He notes that he came to the hospital with SOB, but when more details was obtained, it was learned that the patient has been drinking excessively. Plan: etoh: use ER detox protocol (e.g. ativan detox protocol) or CIWA scale based off of intensity of etoh withdrawal symptoms depression- continue with prozac- discussed black box warning of SSRI dispo: follow up with outpatient rehab once detoxed - Psychiatric problem (1) Depression Current Visit: Yes Status: Chronic Qualifiers: Depression Type: major depressive disorder Major depression recurrence: M Active/Remission status: currently active Major depression episode severity : moderate Psychotic features: P Trimester: T
--- NOTE | 2016-10-14 09:41 | Progress Note ---
Subjective - Reason for Consult Reason for consult: psych management - Chief Complaint Chief complaint: CC: "short of breath" Patient is a 56 year old with prior psych history of depression and etoh use. Patient is tolerating his detox well. In fact he describes to withdrawal symptoms at this time. He is alert oriented times 3. He denies any SI/HI/AH or VH. His depression is stable. His main concern at this time is what his disposition is going to entail given the patient wants to seek outpatient treatment for his etoh use. Mental Status Exam - Vital signs Last Vital Signs Temp 99.1 F 10/14/16 07:19 Pulse 82 10/14/16 07:19 Resp 18 10/14/16 07:20 BP 138/74 10/14/16 07:19 Pulse Ox 98 10/14/16 07:19 - Exam Orientation: time, place, person Affect: normal Mood: sad Thought Process: Intact Perceptions: none Speech: normal rate and pattern Concentration: focused Motor activity: normal Level of consciousness: alert Memory: Intact Interaction: cooperative Mini mental status exam(if necessary): 24-30 Assessment and Plan Patient is a 56 year old with prior psych history of depression and etoh use. He notes that he came to the hospital with SOB, but when more details was obtained, it was learned that the patient has been drinking excessively. Plan: etoh: patient not currently withdrawing depression- continue with prozac- discussed black box warning of SSRI dispo: follow up with outpatient rehab once cleared - Patient Problems (1) Depression Current Visit: Yes Status: Chronic Qualifiers: Depression Type: major depressive disorder Major depression recurrence: M Active/Remission status: currently active Major depression episode severity : moderate Psychotic features: P Trimester: T
[2016-10-14] MEDS ORDERED: PROzac PO SCH (10:00)
[2016-10-14 11:45] VITALS: BP 132/90
== END 2016-10-14 12:49 ==
LOC: EEVIPCON 22:42 → ED 22:42
DX: E83.42 Hypomagnesemia (principal); F10.220 Alcohol dependence with intoxication, uncomplicated; I10 Essential (primary) hypertension; I25.2 Old myocardial infarction; I50.9 Heart failure, unspecified; K21.9 Gastro-esophageal reflux disease without esophagitis; F90.9 Attention-deficit hyperactivity disorder, unspecified type; F41.9 Anxiety disorder, unspecified; F32.9 Major depressive disorder, single episode, unspecified; J44.9 Chronic obstructive pulmonary disease, unspecified; F17.200 Nicotine dependence, unspecified, uncomplicated; Z88.6 Allergy status to analgesic agent; Z91.030 Bee allergy status; Z79.82 Long term (current) use of aspirin
CPT/HCPCS: 36415; 71010; 80053; 80307; 81001; 85025; 93005; 93010; 99285; G0480; 80320